=== PATIENT | male | born 1990 | race African-American/Black ===

== ENCOUNTER 2016-04-30 20:45 | Emergency (ER) | payer SELFPAY ==
[~2016-04-30] VITALS: Ht 175.3 cm; Wt 73.0 kg
[2016-04-30] MEDS ORDERED: IBUPROFEN 600MG TABLET PO STA (21:23)
[2016-04-30 21:36] VITALS: BP 115/57
[2016-04-30 23:21] LABS: HEMATOCRIT. 44.8 % (42.0-52.0); HEMOGLOBIN. 14.8 g/dL (14.0-18.0); MEAN CORPUSCULAR HEMOGLOBIN 30.3 pg (28.0-32.0); MEAN CORPUSCULAR VOLUME 91.7 fL (80.0-94.0); MEAN PLATELET VOLUME 8.2 fl (7.4-10.4); PLATELET 263 x1000/uL (130-400); RED BLOOD CELL COUNT 4.88 mill/uL (4.7-6.1); RED CELL DISTRIBUTION WIDTH 14.2 % (11.6-14.6); WHITE BLOOD COUNT 20.5 x1000/uL (4.5-11.0)
[2016-04-30 23:22] LABS: DIFFERENTIAL COMMENT 1
[2016-04-30 23:33] LABS: ALANINE AMINOTRANSFERASE 24 IU/L (13-61); ANION GAP 15; CALCIUM 8.7 mg/dL (8.5-10.1); CARBON DIOXIDE 24 mEq/L (21-32); CHLORIDE 106 mEq/L (98-107); CREATINE KINASE 350 IU/L (39-308); INDEX HEMOLYSI 1 (1-3); INDEX ICTERIC 1 (1-4); INDEX LIPEMIC 1 (1-3); UREA NITROGEN BLOOD 9 mg/dL (7-21); eGFR > 60 mL/min (>60)
[2016-04-30 23:51] LABS: PLATELET ESTIMATE NORMAL
== END 2016-05-01 00:15 | disposition home or self-care (01) ==
LOC: ER 20:47
DX: R07.9 Chest pain, unspecified (principal); J44.9 Chronic obstructive pulmonary disease, unspecified; F17.200 Nicotine dependence, unspecified, uncomplicated
CPT/HCPCS: 36415; 71010; 80053; 82550; 85025; 93005; 99285